=== PATIENT | female | born 1945 | race Caucasian/White ===

== ENCOUNTER 2020-07-03 15:12 | Outpatient (CLI) | payer MEDICARE, OTHER | END 2020-07-03 15:13 | disposition home or self-care (01) | LOC: COV 15:12 | PROVIDERS: ATTEND Surgery | DX: Z01.812 Encounter for preprocedural laboratory examination (principal); C50.911 Malignant neoplasm of unspecified site of right female breast; Z20.822 Contact with and (suspected) exposure to COVID-19 ==

== ENCOUNTER 2020-07-06 08:31 | Day surgery (SDC) | payer MEDICARE, OTHER ==
[~2020-07-06 08:31] MED LIST: BUFFERED LIDOCAINE 10 ML SYRINGE ONE; BUPIVACAINE 0.5% PF 10 ML VIAL ONE; LIDOCAINE MPF 1%-EPI 1:200000 30 ML VIAL ONE
--- OUTSIDE RECORDS SUMMARY | 2020-07-06 08:34 | EXTERNAL MEDICAL SUMMARY RPT | Continuity of Care Document ---
:1945 Demographics Phone Unavailable Preferred Language Turkish Marital Status Unknown Zoroastrianism Affiliation Unknown Race Unknown Ethnic Group Unknown Author Organization [place] Address [address] [phone] Phone Care Team Providers Name Role Phone Enio Unavailable Unavailable Problems date description facility [id number] Malignant neoplasm of unspecified site of right female [facility] breas [id number] Unspecified lump in the right breast, u [facility] quadrant [id number] Other abnormal and inconclusive finding s on [facility] imagi [id number] Unspecified lump in the right breast, u [facility] quadrant [id number] Other abnormal and inconclusive finding s on [facility] imagi [id number] Encounter for screening mammogram for [facility] neoplasm of Procedures date description facility [id number] [facility] [id number] [facility] [id number] [facility] [id number] [facility] [id number] [facility] Vital Signs date measurement value source [id number] weight_standard 52.22 lb [id number] weight_metric 23.69 kg [id number] height_standard 60 in [id number] height_metric 152.4 cm [id number] heart_rate 64 /min 79146042 BP_systolic 124 mm[Hg] 43472523 BP_diastolic 86 mm[Hg] [id number] BMI 22.4 kg/m2 55481991 weight_standard 50.35 lb [id number] weight_metric 22.84 kg [id number] height_standard 60 in [id number] height_metric 152.4 cm 60489014 heart_rate 64 /min [id number] BP_systolic 118 mm[Hg] 61420705 BP_diastolic 60 mm[Hg] 44903612 BMI 21.7 kg/m2
[2020-07-06] MEDS ORDERED: BUPIVACAINE 0.5% PF 30 ML VIAL ONE (09:26)
[2020-07-06] MEDS ORDERED: LIDOCAINE MPF 2%-EPI 1:200000 20 ML VIAL ONE (09:27)
[2020-07-06] MEDS ORDERED: ceFAZolin 2 GM/50 ML 2 GM/50 ML BAG IV ONE (09:28)
[2020-07-06] MEDS ORDERED: fentaNYL 100 MCG/2 ML VIAL ONE (09:51)
[2020-07-06] MEDS ORDERED: MIDAZOLAM 2 MG/2 ML VIAL ONE (09:51)
[2020-07-06] MEDS ORDERED: LIDOCAINE-MPF 2% 5 ML VIAL ONE (09:52)
[2020-07-06] MEDS ORDERED: PROPOFOL 200 MG/20 ML VIAL IVP ONE (09:52)
--- NOTE | 2020-07-06 10:22 | ANESTHESIA ---
Pre-Anesthesia VS, & Labs - Diagnosis right breast cancer - Procedure right breast lumpectomy and sentinal node biopsy Vital Signs: Temp Pulse Resp BP Pulse Ox 36.2 C L 66 15 147/80 H 97 07/06/20 08:40 07/06/20 08:40 07/06/20 08:40 07/06/20 08:40 07/06/20 08:40 Height: 5 ft 1 in Weight (kg): 51.8 kg Body Mass Index: 21.5 BMI Classification: Healthy weight - NPO >8 hours - Is Patient ?: No Home Medications and Allergies Home Medications: Ambulatory Orders Amlodipine Besylate [Norvasc] 10 mg PO DAILY 06/25/20 Aspirin [Aspirin EC] 81 mg PO DAILY 06/25/20 Atorvastatin [Lipitor] 10 mg PO ONCE 06/25/20 Calcium Carbonate [Tums (Calcium Carbonate 500mg)] 500 mg PO OAW 06/25/20 Cholecalciferol (Vitamin D3) [Vitamin D3] 4,000 unit PO DAILY 06/25/20 Cyanocobalamin (Vitamin B-12) [Vitamin B-12] 1,000 mcg PO DAILY 06/25/20 Folic Acid 0.4 mg PO DAILY 06/25/20 Magnesium 500 mg PO QPM 06/25/20 Multivitamin 1 each PO DAILY 06/25/20 [place]-3S/Dha/Epa/Fish Oil [Fish Oil 1,200 mg Softgel] 1 each PO DAILY 06/25/20 Omeprazole 20 mg PO DAILY 06/25/20 Tolterodine Tartrate [Detrol LA] 4 mg PO DAILY 06/25/20 Ubidecarenone [Co Q-10] 100 mg PO ONCE 06/25/20 Vitamin B Complex 1 each PO DAILY 06/25/20 Amlodipine Besylate [Norvasc] 10 mg PO DAILY 06/25/20 Aspirin [Aspirin EC] 81 mg PO DAILY 06/25/20 Atorvastatin [Lipitor] 10 mg PO ONCE 06/25/20 Calcium Carbonate [Tums (Calcium Carbonate 500mg)] 500 mg PO OAW 06/25/20 Cholecalciferol (Vitamin D3) [Vitamin D3] 4,000 unit PO DAILY 06/25/20 Cyanocobalamin (Vitamin B-12) [Vitamin B-12] 1,000 mcg PO DAILY 06/25/20 Folic Acid 0.4 mg PO DAILY 06/25/20 Magnesium 500 mg PO QPM 06/25/20 Multivitamin 1 each PO DAILY 06/25/20 [place]-3S/Dha/Epa/Fish Oil [Fish Oil 1,200 mg Softgel] 1 each PO DAILY 06/25/20 Omeprazole 20 mg PO DAILY 06/25/20 Tolterodine Tartrate [Detrol LA] 4 mg PO DAILY 06/25/20 Ubidecarenone [Co Q-10] 100 mg PO ONCE 06/25/20 Vitamin B Complex 1 each PO DAILY 06/25/20 Allergies/Adverse Reactions: Allergies Allergy/AdvReac Type Severity Reaction Status Date / Time No Known Drug Allergies Allergy Verified 06/25/20 14:50 Anes History & Medical History - Anesthetic History Anesthesia Complications: reports: No previous complications - Medical History Cardiovascular: reports: Hypertension, High cholesterol Pulmonary: reports: None Gastrointestinal: reports: GERD Urinary: reports: Other Musculoskeletal: reports: Osteoarthritis, Scoliosis Endocrine/Autoimmune: reports: None Skin: reports: None History of Cancer?: Yes - Surgical History General: reports: Colonoscopy, EGD, Other Eyes Ears Nose Throat (EENT): reports: Cataracts, Tonsil/Adenoidectomy Orthopedic: reports: Shoulder arthroplasty Exam General: Alert Dental: WNL Mouth Opening: Greater than 4 Fingerbreadths Mallampati classification: II Thyromental Distance: less than 4 cm Respiratory: Lungs clear Cardiovascular: Regular rate Plan Anesthesia Type: General Consent for Procedure(s) Verified and Reviewed: Yes Code Status: Attempt Resuscitation ASA classification: 2-Mild systemic disease Is this case an emergency?: No
[2020-07-06] MEDS ORDERED: MORPHINE 2 MG/ML CARPUJECT IVP PRN (10:26)
[2020-07-06] MEDS ORDERED: ATROPINE ABBOJECT 1 MG/10 ML SYRINGE IVP PRN (10:26)
[2020-07-06] MEDS ORDERED: METOCLOPRAMIDE 10 MG/2 ML VIAL IVP PRN (10:26)
[2020-07-06] MEDS ORDERED: fentaNYL 100 MCG/2 ML VIAL IVP PRN (10:26)
[2020-07-06] MEDS ORDERED: NALOXONE 0.4 MG/ML VIAL IVP PRN (10:26)
[2020-07-06] MEDS ORDERED: ONDANSETRON 4 MG/2 ML VIAL IVP PRN ×2 (10:26→14:02)
[2020-07-06] MEDS ORDERED: ePHEDrine 50 MG/ML VIAL IVP PRN (10:26)
[2020-07-06] MEDS ORDERED: HYDROmorphone 0.5 MG/0.5 ML SYRINGE IVP PRN (10:26)
[2020-07-06] MEDS ORDERED: LACTATED RINGERS 1,000 ML IV SCH (11:00)
[2020-07-06] MEDS ORDERED: BUFFERED LIDOCAINE 10 ML SYRINGE IU ONE (11:14)
[2020-07-06] MEDS ORDERED: BUPIVACAINE 0.5% PF 10 ML VIAL IM ONE (11:15)
--- NOTE | 2020-07-06 12:35 | Nuclear Medicine Report ---
PROCEDURE: Lymph Node Scintigraphy INDICATIONS: RT BREAST CA RADIOPHARMACEUTICAL: 0.5-1.0 mCi Millipore filtered Tc-99m sulfur colloid. TECHNIQUE: The area around the nipple was prepped and draped in a sterile fashion. Tc-99m sulfur colloid was in jected intra-dermally in the outer edge of the areola in the right breast. Images were obtained subs equently. A body contour outline was obtained. FINDINGS: There is 1 lymph node(s) in the ipsilateral axilla, which is marked on the skin and the images for re ferring physician. IMPRESSION: Administration of radiotracer into the right breast periareolar region for intra-operati ve sentinel lymph node localization documents 1 reliably identifiable lymph node at the right axilla. . Reviewed by: Adriano Byers MD on 07/06/2020 12:34 PM PDT Approved by: Adriano Byers MD on 07/06/2020 12:34 PM PDT Station ID: [id number]
[2020-07-06] MEDS ORDERED: BUPIVACAINE 0.5% PF 30 ML VIAL SUBQ ONE ×2 (12:59→13:44)
[2020-07-06] MEDS ORDERED: LIDOCAINE MPF 2%-EPI 1:200000 20 ML VIAL SUBQ ONE ×2 (12:59→13:45)
[2020-07-06] MEDS ORDERED: DEXAMETHASONE 4 MG/ML VIAL ONE (13:16)
[2020-07-06] MEDS ORDERED: ONDANSETRON 4 MG/2 ML VIAL ONE (13:16)
--- NOTE | 2020-07-06 13:59 | OPERATIVE REPORT ---
Operative Report - General Procedure Date: 07/06/20 Planned Procedure: Right breast lumpectomy and sentinel node biopsy after needle localization and mapping Pre-Op Diagnosis: Biopsy-proven right breast cancer Procedure Performed: Right breast lumpectomy and sentinel node biopsy after needle localization and mapping Post Op Diagnosis: Biopsy-proven right breast cancer - Procedure Note Primary Surgeon: [facility] Anesthesia Provider: KENNEDY Kramer Anesthesia Technique: General LMA, Local Pathology: 1. 1 axillary sentinel node with 10-second count greater than 22,300 2. Right breast mass marked for orientation Estimated Blood Loss (mL): 15 Findings: Clip, wire, and lesion all contained within the specimen Complications: None apparent - Other Other Information/Narrative: After obtaining informed consent, the patient was brought to the operating room and placed in the supine position on the operating table. Following successful induction of general endotracheal anesthesia, appropriate padding of all bony prominences, and placement of appropriate monitors, the right breast was prepped and draped in the standard surgical fashion. A timeout was held per scope protocol. All elements of the surgical safety checklist were followed before, during, and after the procedure. We began the procedure with a sentinel node dissection. The site of the brightest node had been marked in radiology with 2 skin marker axis. The neoprobe was used to identify the site of greatest uptake at level 2 in the patient's axilla. An incision was created over this area of uptake and carried through the skin and subcutaneous tissue to enter the axillary node packet. The sentinel node was identified. It was noted to be grossly normal in appearance. It was carefully dissected free from surrounding stop structures sharply, all lymphatics and vasculature were addressed with clips prior to division. The node was liberated into the field. 10-second counts are recorded. The of the axilla did not reveal any other targets for biopsy.Background in the axilla was to an background in the room was 0. The axillary incision was then closed in 2 layers with Vicryl and Monocryl sutures. We turned our attention to the right breast mass. The area over the mass and in the periareolar region was infiltrated with a mixture of local anesthetics to cry to field block. A periareolar incision was then created and the mass and associated wire carefully dissected sharply from the subcutaneous tissue anteriorly and from the retromammary bursa posteriorly. The mass was removed in a single piece in a medial to lateral fashion. It was marked with a short stitch superior, long stitch lateral, and double stitch anterior. It was finally liberated sharply and delivered into the field. The wound was checked for hemostasis. It was irrigated again with warm water. The specimen xray was examined and found to contain the target clip and lesion well centered. The wound was then closed in 2 layers with Vicryl and Monocryl sutures. All sponge, needle, and instrument counts were correct at the conclusion of the case. The patient was let awakened anesthesia without difficulty and taken to the postanesthesia care unit in good condition.
[2020-07-06] MEDS ORDERED: ACETAMINOPHEN 325 MG TABLET PO PRN (14:02)
[2020-07-06] MEDS ORDERED: IBUPROFEN 600 MG TABLET PO PRN (14:02)
[2020-07-06] MEDS ORDERED: oxyCODONE 5 MG TABLET PO PRN (14:02)
[2020-07-06] MEDS ORDERED: LACTATED RINGERS 1,000 ML IV ONE (14:04)
[2020-07-06 15:09] VITALS: BP 140/80
--- NOTE | 2020-07-07 05:29 | Mammography Report ---
DIGITAL MAMMOGRAPHY GUIDED WIRE LOCALIZATION RIGHT BREAST WITH POST MAMMOGRAPHIC IMAGING AND RADIOA [facility] SPECIMEN IMAGIN07/06/2020 CLINICAL: Right breast stereotactic biopsy. Post wire placement. Correlation is made to exams dated: 06/05/2020 ultrasound biopsy, 06/05/2020 mammogram, 05/28/2020 ultr asound, 05/28/2020 mammogram, 05/21/2020 mammogram, and [facility]/2019 [facility]. A wire localization using digital mammography guidance was performed for the concerning marker clip l ocated in the right breast at 1 o'clock middle depth. This was described on the previous mammography and ultrasound reports. The skin was prepped in the usual manner. Local anesthetic was administere d to the access site. The localization was approached from the craniocaudal aspect. A J-hook wire w as inserted into the targeted area under digital mammography guidance. A sterile dressing was applie d to the access site. Post placement mammographic imaging demonstrates the tip demarcates the bounda benito of the targeted area. IMPRESSION: WIRE LOCALIZATION Wire localization for the marker clip in the right breast at 1 o'clock middle depth was successful. The imaged specimen includes the lesion, a biopsy clip, and the distal portion of the localization wi re. This exam was interpreted at Station ID: [id number]. Adriano Byers M.D. sdh/:07/06/2020 15:39:11 BI-RADS CATEGORY: () - Unspecified - other recall n/a LATERALITY: (B)
--- NOTE | 2020-07-07 05:30 | Mammography Report ---
SPECIMEN: 07/06/2020 CLINICAL: Right breast specimen. Correlation is made to exams dated: 07/06/2020 localization - [facility], 06/22/2020 breast MRI, 06/05/2020 mammogram, 05/28/2020 ultrasound, and 05/28/2020 mammogram - [facility]. The specimen from the OR includes the lesion, the biopsy clip, and the loc wire. IMPRESSION: SPECIMEN Expected specimen appearance from the OR. This exam was interpreted at Station ID: [id number]. Adriano Byers M.D. sdh/:07/06/2020 15:40:30 BI-RADS CATEGORY: () - Unspecified - other recall n/a LATERALITY: (B)
== END 2020-07-06 08:32 | disposition home or self-care (01) ==
LOC: SDS 08:31
PROVIDERS: ATTEND Surgery
PROC: 07B50ZX Excision of Right Axillary Lymphatic, Open Approach, Diagnostic (ICD-10-PCS; 2020-07-06)
PROC: 0HBT0ZZ Excision of Right Breast, Open Approach (ICD-10-PCS; principal; 2020-07-06 11:30)
DX: C50.211 Malignant neoplasm of upper-inner quadrant of right female breast (principal)
CPT/HCPCS: 19281; 19301; 38525; 76098; 78195; J0690; J7120; 88307; 88360

== ENCOUNTER 2020-09-14 08:17 | Outpatient (CLI) | payer MEDICARE, OTHER ==
--- NOTE | 2020-09-14 16:46 | DEXA Report ---
PROCEDURE: Dexa Spine and/or Hip INDICATIONS: POSTMENOPAUSAL TECHNIQUE: Dual energy x-ray absorptiometry (DXA) was performed on a [employer] System. Regions measur ed are the AP Spine, femoral neck, and if needed forearm. COMPARISON: None. FINDINGS: Bone mineral density in the femoral neck and lumbar spine are normal. The bone mineral density in the left femoral neck is 0.82 with a T score of -1.1. The bone mineral density in the spine from L1-L4 i s 1.306, T score of 1.1. Impression: Normal bone mineral density. Patients with diagnosis of osteoporosis or osteopenia should have regular bone mineral density assess ment. For those eligible for Medicare, routine testing is allowed once every 2 years. Testing frequ ency can be increased for patients who have rapidly progressing disease or for those who are receivin g medical therapy to restore bone mass. Reviewed by: Salvatore Garcia MD on 09/14/2020 4:45 PM PDT Approved by: Salvatore Garcia MD on 09/14/2020 4:45 PM PDT Station ID: [id number]
== END 2020-09-14 08:18 | disposition home or self-care (01) ==
LOC: DI 08:17
PROVIDERS: ATTEND Internal Medicine
DX: Z78.0 Asymptomatic menopausal state (principal)